=== PATIENT | male | born 1965 | race Hispanic/Latino ===

== ENCOUNTER 2023-03-27 15:53 | Emergency (ER) | payer OTHER ==
[~2023-03-27] VITALS: Ht 165.1 cm; Wt 84.4 kg
[2023-03-27 16:31] LABS: EOSINOPHILS % (AUTO) 1.5 % (0.0-8.0); HEMATOCRIT 42.6 % (42-54); LYMPHOCYTES % (AUTO) 22.1 % (21.0-51.0); MEAN CORPUSCULAR HEMOGLOBIN 30.4 pg (27.0-33.0); MEAN CORPUSCULAR HGB CONC 33.8 g/dL (32.0-36.0); MEAN CORPUSCULAR VOLUME 90.1 fL (79-99); MONOCYTES % (AUTO) 11.1 % (3.0-13.0); NEUTROPHILS % (AUTO) 63.1 % (40.0-77.0); PLATELET COUNT (AUTO) 244 K/uL (130-400); RED BLOOD CELL COUNT(AUTO) 4.73 MIL/uL (4.50-6.20); RED CELL DISTRIBUTION WIDTH 14.4 % (11.0-15.5); WHITE BLOOD COUNT (AUTO) 8.2 K/uL (4.8-10.8)
[2023-03-27 16:43] LABS: CARBON DIOXIDE 25 mmol/L (21-32); CHLORIDE 106 mmol/L (101-111); CREATININE 1.1 mg/dL (0.5-1.5); GLOMERULAR FILTR. RATE CALC 78 mL/min (>90); GLUCOSE,RANDOM 110 mg/dL (70-105); POTASSIUM 3.3 mmol/L (3.5-5.1); SODIUM SERUM 141 mmol/L (136-145); UREA NITROGEN, BLOOD 10 mg/dL (7-18)
[2023-03-27 16:47] LABS: ALANINE AMINOTRANSFERASE 31 U/L (12-78); ALBUMIN 3.8 g/dL (3.5-5.0); AMMONIA 30 umol/L (11-32); ASPARTATE AMINOTRANSFERASE 11 U/L (10-37); TOTAL PROTEIN, SERUM 7.3 g/dL (6.0-8.3)
[2023-03-27 16:51] LABS: B-TYPE NATRIURETIC PEPTIDE 25 pg/mL (0-100)
[2023-03-27 19:13] VITALS: BP 152/90
== END 2023-03-27 19:26 | disposition home or self-care (01) ==
LOC: EDH 15:53
DX: R07.9 Chest pain, unspecified (principal); F17.200 Nicotine dependence, unspecified, uncomplicated; I10 Essential (primary) hypertension; Z98.890 Other specified postprocedural states
CPT/HCPCS: 36415; 70450; 71045; 80053; 82140; 83735; 83880; 84484; 85025; 93005